=== PATIENT | female | born 1975 | race Two or more races ===

== ENCOUNTER → 2016-06-25 | Day surgery (SDC) | payer BC ==
[2016-06-25] VITALS (9 sets, daily range): BP systolic 102–123; BP diastolic 55–64
[~2016-06-25] VITALS: Ht 175.3 cm; Wt 72.1 kg
[~2016-06-25] MED LIST: Hydromorphone 0.5mg/0.5ml inj IVP PRN; Ketorolac 30mg Inj IV PRN; Lidocaine 1% MPF 10mg/ml 5ml ONE; NKM; Norco 5mg/325mg tab ORAL PRN; Propofol 10mg/ml 20ml IV ONE; fentaNYL 100 mcg/2 mL IV PRN
--- NOTE | 2016-06-25 11:08 | Pre-Procedure Note/Attestation ---
Pre-Procedure Note/Attestation Complete Prior to Procedure Planned Procedure: not applicable Procedure Narrative: egd/eus Indications for Procedure Pre-Operative Diagnosis: gastric submucosal lesion Attestation I attest that I discussed the nature of the procedure; its benefits; risks and complications; and alternatives (and the risks and benefits of such alternatives ), prior to the procedure, with the patient (or the patient's legal sales representative raw fibers). I attest that, if there was a reasonable possibility of needing a blood transfusion, the patient (or the patient's legal sales representative raw fibers) was given the [facility] standardized written summary, pursuant to the Álvaro Donnell Blood Safety Act ([place] Health and Safety Code # 1645, as amended). I attest that I re-evaluated the patient just prior to the surgery and that there has been no change in the patient's H&P, except as documented below: ALISTAIR REEDER Jun 25, 2016 11:08
--- NOTE | 2016-06-25 11:10 | Short Stay Surgery H&P ---
History of Present Illness History of Present Illness Chief Complaint gastric submucosal lesion JOHANNY Lawton is a 41 year old female who was admitted on for Gastric Lesion Patient History Allergies: Coded Allergies: No Known Allergies (Unverified , 06/25/16) PAST MEDICAL HISTORY: (1) Gastritis Past Surgeries: Social History: Medication History Scheduled No Known Medications* (NKM - No Known Medications*), 0 ., (Reported) Review of Systems Cardiovascular: Reports: no symptoms Respiratory: Reports: no symptoms Skeletal: Reports: no symptoms Gastrointestinal: Reports: no symptoms Genitourinary: Reports: no symptoms Neurologic: Reports: no symptoms Endocrine: Reports: no symptoms Hematologic: Reports: no symptoms Physical Exam Vital Signs Last Vital Signs Date Time Temp Pulse Resp B/P Pulse Ox O2 Delivery O2 Flow Rate FiO2 06/25/16 10:27 98.8 57 18 123/59 100 Room Air Labs Laboratory Tests Test 06/25/16 09:45 Urine HCG, Qualitative Negative Skin: normal HENT: normal Heart: normal Lungs: normal Abdomen: normal Extremities: normal Plan Plan of Care eus Final Diagnosis: Attestation Are the patient's medical conditions optimized for surgery? Attestation Response: yes ALISTAIR REEDER Jun 25, 2016 11:10
--- NOTE | 2016-06-25 11:44 | Immediate Post-Op Evaluation ---
Immediate Post-Op Evalulation Immediate Post-Op Evalulation Procedure: Endoscopic Ultrasound Date of Evaluation: Jun 25, 2016 Time of Evaluation: 12:10 Blood Products: 500 Estimated Blood Loss: 0 Urinary Output: 0 Blood Pressure Systolic: 150 Blood Pressure Diastolic: 78 Pulse Rate: 90 Respiratory Rate: 20 O2 Sat by Pulse Oximetry: 99 Temperature (Fahrenheit): 99 Pain Score (1-10): 1 Nausea: No Vomiting: No Complications na Patient Status: awake Hydration Status: adequate Given Within 1 Hr of Incision: No MORGAN COLBERT M.D. Jun 25, 2016 11:44
--- NOTE | 2016-06-25 11:47 | Anethesia Preoperative Eval ---
Anesthesia Pre-op PMH/ROS General Date of Evaluation: Jun 25, 2016 Time of Evaluation: 11:20 Anesthesiologist: Carlitos ASA Score: ASA 1 Mallampati Score Class I : Soft palate, uvula, fauces, pillars visible Class II: Soft palate, uvula, fauces visible Class III: Soft palate, base of uvula visible Class IV: Only hard plate visible Mallampati Classification: Class I Surgeon: lexii Diagnosis: Gastric Mass Surgical Procedure: Endoscopic ultrasound Anesthesia History: none Family History: no anesthesia problems Allergies: Coded Allergies: No Known Allergies (Unverified , 06/25/16) Medications: see eMAR Past Medical History Cardiovascular: Denies: CAD, HTN, IA, arrhythmia, other, valve dz Pulmonary: Denies: COPD, LILIANA, asthma, other Gastrointestinal/Genitourinary: Denies: CRI, ESRD, GERD, other Neurologic/Psychiatric: Denies: CVA, TIA, dementia, depression/anxiety, other Endocrine: Denies: DM, hypothyroidism, other, steroids HEENT: Denies: TORRES MARTINEZ (L), TORRES MARTINEZ (R), cataract (L), cataract (R), glaucoma, other Hematology/Immune: Denies: DVT, anemia, bleeding disorder, other Musculoskeletal/Integumentary: Denies: DDD, DJD, OA, RA, edema, other Anesthesia Pre-op Phys. Exam Physician Exam Last Vital Signs Date Time Temp Pulse Resp B/P Pulse Ox O2 Delivery O2 Flow Rate FiO2 06/25/16 10:27 98.8 57 18 123/59 100 Room Air Constitutional: NAD Neurologic: CN 2-12 intact Cardiovascular: RRR Respiratory: CTA Airway Exam Mallampati Score: Class II Anesthesia Pre-op A/P Labs Urine Test Test 06/25/16 09:45 Urine HCG, Qualitative Negative MORGAN COLBERT M.D. Jun 25, 2016 11:47
--- NOTE | 2016-06-25 11:48 | 48 Hour Post Anesthesia Eval ---
Post Anesthesia Evaluation Procedure: Endoscopic Ultrasound Date of Evaluation: Jun 25, 2016 Time of Evaluation: 13:00 Blood Pressure Systolic: 150 0: 80 Pulse Rate: 90 Respiratory Rate: 20 Temperature (Fahrenheit): 98 O2 Sat by Pulse Oximetry: 99 Airway: patent Nausea: No Vomiting: No Pain Intensity: 1 Hydration Status: adequate Cardiopulmonary Status: Stable Mental Status/LOC: patient returned to baseline Follow-up Care/Observations: na Post-Anesthesia Complications: na Follow-up care needed: N/A MORGAN COLBERT M.D. Jun 25, 2016 11:48
--- NOTE | 2016-06-25 11:52 | Endoscopy Procedure Note ---
Endoscopy Procedure Note Indication for Procedure: gastric submucosal lesion Procedures Performed: other - EUS Operative Findings/Diagnosis: same Specimen: none Pt Tolerated Procedure Well: Yes Estimated Blood Loss: none Anesthesiologist: wilber Anesthesia: MAC Implant(s) used?: No 50 yrs or older w/o bx or poly: Not Applicable 10yrs. F/U not recommended: Not Applicable ALISTAIR REEDER Jun 25, 2016 11:52
--- NOTE | 2016-06-25 20:18 | Procedure Note ---
DATE OF PROCEDURE: 06/25/2016 SURGEON: Joni Valdovinos M.D. PROCEDURE: Endoscopic ultrasound. ANESTHESIOLOGIST: Asa Urbina M.D. INSTRUMENT: Olympus adult flexible EUS scope. INDICATION: Gastric submucosal lesion. REASON FOR PROCEDURE: The procedure, risks, benefits, and possible consequences, including hemorrhage, aspiration, perforation and infection, and alternative treatments, were explained to the patient/legal guardian by Dr. Joni Valdovinos and the patient/legal guardian understood and accepted these risks. DESCRIPTION OF PROCEDURE: After informed consent was obtained and the patient was adequately sedated, Olympus EUS scope was advanced from mouth into the second portion of the duodenum and pancreatic parenchyma and dull gastric wall was very carefully examined. The patient had a normal pancreatic parenchyma without any pancreatic ductal dilatation. Gallbladder was also seen without any gallstones. Common bile duct was not dilated. We saw about 8 mm hypoechoic lesion arising from the muscularis propria layer in the fundus of the stomach most suspicious for leiomyoma. Given the size of 8 mm and given the echogenicity and ultrasound finding, we did not do fine-needle aspiration at this time. The patient tolerated the procedure well without any complication. SUMMARY OF FINDINGS: 1. 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 2. Normal pancreatic parenchyma without any obvious pancreatitis or dilated pancreatic duct. 3. Normal common bile duct and normal gallbladder. RECOMMENDATIONS: Consider doing EUS in three years for follow up of this lesion. I want to thank, Dr. Izaiah Koroma, for this kind referral. Joni Valdovinos M.D. DR: INGRIS JOB#: [id number] CC: Izaiah Koroma M.D.
== END | disposition home or self-care (01) ==
LOC: GAS 09:28
DX: K31.9 Disease of stomach and duodenum, unspecified (principal); Z87.19 Personal history of other diseases of the digestive system
CPT/HCPCS: 81025; 94003; 94150